=== PATIENT | male | born 1960 | race Caucasian/White ===

== ENCOUNTER 2018-09-19 10:11 | Emergency (ER) | payer BC ==
[2018-09-19] MEDS ORDERED: Famotidine IV* 10 MG/ML 2 ML (20 mg) IV SLOW PU ONE (10:19)
[2018-09-19] MEDS ORDERED: methylPREDNISolone 125 MG* 2 ML VIAL IV ONE (10:19)
--- NOTE | 2018-09-19 10:22 | UC ---
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 He took 3 children's Benadryl and 1 Claritin. Multiple bee stings on his lower extremity, and back and one on his head and now with spreading rash- approximately 20. Denies any chest pain or shortness of breath but feels some chest tightness. Denies any sensation of choking. 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 Previously Healthy: Yes - Family History Known Family History: Positive: Non-Contributory - Social History Substance Use Type: None Review of Systems All Other Systems Reviewed And Are Negative: Yes Constitutional: Positive: Negative Skin: Positive: Rash Eyes: Positive: Negative ENT: Positive: Negative Respiratory: Positive: Negative Cardiovascular: Positive: Negative Gastrointestinal: Positive: Negative Genitourinary: Positive: Negative Motor: Positive: Negative Neurovascular: Positive: Negative Musculoskeletal: Positive: Negative Neurological: Positive: Negative Psychological: Positive: Negative Is Patient Immunocompromised?: No Physical Exam - Summary Physical Exam Summary: Physical Exam: Const: Appears well. No signs of apparent distress present. Alert and oriented x 3. Musculo: Walks with a normal gait. Head/Face: Atraumatic, normocephalic on inspection. Eyes: EOMI and PERRLA in both eyes. Conjunctivae clear. No discharge noted . Eyelids are not swollen or puffy. ENT: Hearing normal, no significant pharyngeal erythema or exudate, uvula midline Respiratory: Respirations are unlabored. Lungs clear to auscultation bilaterally, no wheezing , rhonchi or rales noted . CVS: Regular rate and Rhythm, S1S2 normal , no murmurs identified. Extremities: Peripheral circulation is grossly normal. Pulses 2+ Abdomen : Soft non tender , nondistended , Bowel sounds present . No guarding , rebound tenderness or rigidity noted. Skin: Multiple bee stings and noted on his lower extremities bilaterally, back and one on the right posterior head. Significant surrounding erythema and swelling. Neuro: Cranial nerves II to XII intact, motor and sensory intact. DTR Intact bilaterally. Mood is normal. Affect is normal. Triage Information Reviewed: Yes Vital Signs Reviewed: Yes Allergic Reaction Course/Dx - Course Course Of Treatment: During the visit today, IV line was started and he was given 1 L of normal saline . Was also given 1 dose of 125 mg IV Solu-Medrol and 40 mg Pepcid IV. He had one dose of Claritin and 37.5 mg bilateral before arrival. His vitals remained stable- initially on arrival- 109/68 and later 113 /66 Since he was reporting some chest tightness, he was given 1 dose of epinephrine 0.3 mg. Re-eval 11 am: Feeling better, redness decreasing, no new symptoms. Vitals stable. Plan to discharge and follow up with PMD in 2 days . Patient expressed understanding . - Differential Dx/Diagnosis Provider Diagnosis: Allergic reaction to bee sting Discharge - Sign-Out/Discharge Documenting (check all that apply): Patient Departure All imaging exams completed and their final reports reviewed: No Studies - Discharge Plan Condition: Stable Disposition: HOME Prescriptions: predniSONE [Prednisone 20 MG TAB] 60 mg PO DAILY 5 Days #15 tablet Ranitidine TAB (NF) [Zantac TAB (NF)] 150 mg PO BID 7 Days #14 tab Patient Education Materials: General Allergic Reaction (ED) Referrals: Quan Cardenas MD [Medical Doctor] - As Soon As Possible No Primary Care Phys,NOPCP [Medical Doctor] - Soy Leggett MD [Primary Care Provider] - 2 Days Additional Instructions: Please start taking the medication as prescribed to the pharmacy . Take benadryl 50 mg every 6 to 8 hours for next 2 to 3 days and after that as needed. Follow up with your primary care doctor in 2 days. 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 - Billing Disposition and Condition Condition: STABLE Disposition: Home
[2018-09-19] MEDS ORDERED: NS 0.9% 1000 ML** 1,000 ML IV ONE (10:28)
[2018-09-19] MEDS ORDERED: EPINEPHRINE 1 MG/ML 1 ML VIAL IM ONE (10:36)
[2018-09-19 11:31] VITALS: BP 103/64
== END 2018-09-19 11:40 | disposition home or self-care (01) ==
LOC: UCEAST 10:11
DX: T63.441A Toxic effect of venom of bees, accidental (unintentional), initial encounter (principal); Y92.017 Garden or yard in single-family (private) house as the place of occurrence of the external cause; I10 Essential (primary) hypertension
CPT/HCPCS: 96361; 96372; 96374; 96376; 99212; G0463; J2930

== ENCOUNTER 2020-12-22 12:55 | Observation (INO) ==
[2020-12-22 13:57] LABS: ABS Basophils 0.1 10^3/ul (0-0.2); ABS Eosinophils 0.1 10^3/ul (0-0.6); ABS Lymphocytes 1.6 10^3/ul (1.0-4.8); ABS Monocytes 0.7 10^3/ul (0-0.8); ABS Neutrophils 4.1 10^3/ul (1.5-7.7); Eosinophil % 2.1 %; Hematocrit 42 % (42-52); Lymphocyte % 24.2 %; Mean Corpuscular HGB Conc 34 g/dL (31-36); Mean Corpuscular Hemoglobin 29 pg (27-31); Mean Corpuscular Volume 87 fL (80-94); Mean Platelet Volume 9.1 fL (7.4-10.4); Platelet Count 200 10^3/uL (150-450); Red Blood Count 4.81 10^6 /uL (4.18-5.48); Red Cell Distribution Width 14 % (10-15); White Blood Count 6.6 10^3/uL (3.5-10.8)
[2020-12-22 14:16] LABS: Albumin 4.2 g/dL (3.2-5.2); Albumin/Globulin Ratio 1.5 (1-3); Calcium 8.9 mg/dL (8.6-10.3); Globulin 2.8 g/dL (2-4); Potassium 4.4 mmol/L (3.5-5.0); Total Bilirubin 0.3 mg/dL (0.2-1.0)
[2020-12-22 14:54] LABS: TSH Ultra Thyroid Stim Horm 7.56 mcIU/mL (0.34-5.60)
[2020-12-22 15:53] LABS: Free T4 0.6 ng/dL (0.61-1.12)
[2020-12-22] MEDS ORDERED: NS 0.9% 1000 ml BAG 1,000 ML IV ONE (17:20)
[2020-12-22 18:18] LABS: Troponin I 0.01 ng/mL (<0.03)
[2020-12-22] MEDS: Enoxaparin 40 MG/0.4 ML SYR SUBCUT SCH (18:21)
[2020-12-22 22:28] LABS: Rapid COVID-19 Molecular Undetected (Undetected)
[2020-12-23 06:00] LABS: ABS Eosinophils 0.2 10^3/ul (0-0.6); ABS Lymphocytes 1.9 10^3/ul (1.0-4.8); ABS Monocytes 0.6 10^3/ul (0-0.8); Eosinophil % 3.3 %; Hematocrit 39 % (42-52); Lymphocyte % 32.8 %; Mean Corpuscular HGB Conc 33 g/dL (31-36); Mean Corpuscular Hemoglobin 29 pg (27-31); Mean Corpuscular Volume 88 fL (80-94); Mean Platelet Volume 8.8 fL (7.4-10.4); Platelet Count 176 10^3/uL (150-450); Red Blood Count 4.44 10^6 /uL (4.18-5.48); Red Cell Distribution Width 14 % (10-15); White Blood Count 5.7 10^3/uL (3.5-10.8)
[2020-12-23 06:17] LABS: Calcium 8.7 mg/dL (8.6-10.3); HDL Cholesterol 38.8 mg/dL; Potassium 4.6 mmol/L (3.5-5.0)
[2020-12-23] MEDS: Enoxaparin 40 MG/0.4 ML SYR SUBCUT SCH (16:49)
[2020-12-24 06:16] LABS: Calcium 8.8 mg/dL (8.6-10.3); Magnesium 2.1 mg/dL (1.9-2.7); Potassium 4.2 mmol/L (3.5-5.0)
[2020-12-24 12:40] VITALS: BP 127/80
[2020-12-24] MEDS ORDERED: Aminophylline 25 MG/ML VIAL ONE (13:25)
[2020-12-24] MEDS ORDERED: Regadenoson 0.4 MG/5 ML SYRINGE ONE (13:25)
== END 2020-12-24 16:33 | disposition home or self-care (01) ==
LOC: ED 12:55 → EDHOLD 12:55 → MEDTELE 21:40
PROVIDERS: ADMIT Internal Medicine; ATTEND Internal Medicine

== ENCOUNTER 2021-02-08 10:19 | Observation (INO) ==
[2021-02-08] MEDS ORDERED: Diltiazem IV push/loading dose 5 MG/ML 5 ML vial (25 mg) ONE (10:32)
[2021-02-08] MEDS ORDERED: Amiodarone 150 mg IVPREMIX 150 MG/100 ML BAG IV ONE ×2 (10:36→10:48)
[2021-02-08] MEDS ORDERED: Amiodarone IV 150 mg/3 ml VIAL ONE ×2 (10:36→10:39)
[2021-02-08] MEDS ORDERED: Diltiazem IV push/loading dose 5 MG/ML 5 ML vial (25 mg) IV SLOW PU ONE (10:48)
[2021-02-08 11:00] LABS: ABS Basophils 0.1 10^3/ul (0-0.2); ABS Eosinophils 0.5 10^3/ul (0-0.6); ABS Lymphocytes 2.8 10^3/ul (1.0-4.8); ABS Monocytes 0.9 10^3/ul (0-0.8); ABS Neutrophils 4.3 10^3/ul (1.5-7.7); Eosinophil % 5.8 %; Hematocrit 45 % (42-52); Hemoglobin 15.1 g/dL (14.0-18.0); Mean Corpuscular HGB Conc 34 g/dL (31-36); Mean Corpuscular Hemoglobin 29 pg (27-31); Mean Corpuscular Volume 86 fL (80-94); Mean Platelet Volume 8.9 fL (7.4-10.4); Nucleated Red Blood Cells % 0.1; Platelet Count 309 10^3/uL (150-450); Red Blood Count 5.22 10^6 /uL (4.18-5.48); Red Cell Distribution Width 14 % (10-15); White Blood Count 8.6 10^3/uL (3.5-10.8)
[2021-02-08 11:05] LABS: INR 1.04 (0.86-1.15)
[2021-02-08 11:21] LABS: Troponin I 0.01 ng/mL (<0.03)
[2021-02-08 11:39] LABS: Albumin 4.5 g/dL (3.2-5.2); Albumin/Globulin Ratio 1.5 (1-3); Calcium 9.5 mg/dL (8.6-10.3); Potassium 4.4 mmol/L (3.5-5.0); Total Bilirubin 0.5 mg/dL (0.2-1.0); Total Protein 7.5 g/dL (6.4-8.9); eGFR CKD-EPI 56.8 (>60)
[2021-02-08] MEDS: Amiodarone 400 mg TAB PO SCH ×2 (11:51→20:44)
[2021-02-08 13:17] LABS: TSH Ultra Thyroid Stim Horm 8.75 mcIU/mL (0.34-5.60)
[2021-02-08 13:21] LABS: Free T4 0.8 ng/dL (0.61-1.12)
[2021-02-08 13:27] LABS: Thyroid Peroxidase Antibodies 433.12 IU/mL (<9)
[2021-02-08 13:39] LABS: Thyroglobulin Antibody II 97.4 IU/mL (<4.0)
[2021-02-08] MEDS ORDERED: Enoxaparin 40 MG/0.4 ML SYR SUBCUT SCH (21:00)
[2021-02-09] MEDS: Amiodarone 400 mg TAB PO SCH (10:23)
[2021-02-09 11:20] VITALS: BP 130/69
== END 2021-02-09 13:00 | disposition home or self-care (01) ==
LOC: ED 10:19 → EDHOLD 10:19 → SUATTDRO 12:52 → MEDTELE 14:08
PROVIDERS: ADMIT Hospitalist; ATTEND Hospitalist